=== PATIENT | female | born 1955 | race Caucasian/White ===

== ENCOUNTER 2018-08-27 12:19 | Observation (INO) | payer OTHER ==
[~2018-08-27] VITALS: Ht 160 cm; Wt 57.6 kg
[2018-08-27 14:06] LABS: EOSINOPHILS % (AUTO) 1.3 % (0.0-8.0); HEMATOCRIT 39.2 % (36-48); LYMPHOCYTES % (AUTO) 28.4 % (21.0-51.0); MEAN CORPUSCULAR HEMOGLOBIN 32.3 pg (27.0-33.0); MEAN CORPUSCULAR HGB CONC 34.2 g/dL (32.0-36.0); MEAN CORPUSCULAR VOLUME 94.5 fL (79-99); MONOCYTES % (AUTO) 8.8 % (3.0-13.0); NEUTROPHILS % (AUTO) 60.5 % (40.0-77.0); PLATELET COUNT (AUTO) 226 K/uL (130-400); RED BLOOD CELL COUNT(AUTO) 4.15 MIL/uL (4.00-5.50); RED CELL DISTRIBUTION WIDTH 13.2 % (11.0-15.5); WHITE BLOOD COUNT (AUTO) 4.6 K/uL (4.8-10.8)
[2018-08-27 14:17] LABS: CREATININE 0.6 mg/dL (0.5-1.5); POTASSIUM 3.9 mmol/L (3.5-5.1)
[2018-08-27 14:23] LABS: PARTIAL THROMBOPLASTIN TIME 24.7 SEC (26.3-35.5); PROTHROMBIN TIME 10.5 SEC (9.6-11.6)
[2018-08-27 14:24] LABS: ALBUMIN 4.2 g/dL (3.5-5.0); BILIRUBIN,TOTAL 0.5 mg/dL (0.2-1.0); TOTAL PROTEIN, SERUM 7.3 g/dL (6.0-8.3)
[2018-08-27] MEDS ORDERED: ACETAMINOPHEN-CODEINE 300/30MG TAB PO PRN (17:45)
[2018-08-27] MEDS ORDERED: APIXABAN 5 MG TABLET PO SCH (21:00)
[2018-08-27] MEDS: ENOXAPARIN SODIUM 60 MG/0.6 ML SQ SCH (21:00)
[2018-08-27] MEDS ORDERED: ENOXAPARIN SODIUM 100 MG/1 ML SQ ONE (21:02)
[2018-08-27 21:28] VITALS: BP 144/64
[2018-08-27] MEDS ORDERED: VERA80TA5 PO (21:42)
[2018-08-27] MEDS ORDERED: ASPI-1026 PO (21:42)
[2018-08-27 23:15] VITALS: BP 134/66
[2018-08-28] VITALS (7 sets, daily range): BP systolic 103–139; BP diastolic 50–69
[2018-08-28 03:50] LABS: HEMATOCRIT 37.3 % (36-48); MEAN CORPUSCULAR HEMOGLOBIN 31.8 pg (27.0-33.0); MEAN CORPUSCULAR HGB CONC 34.1 g/dL (32.0-36.0); MEAN CORPUSCULAR VOLUME 93.4 fL (79-99); PLATELET COUNT (AUTO) 194 K/uL (130-400); RED CELL DISTRIBUTION WIDTH 13.2 % (11.0-15.5); WHITE BLOOD COUNT (AUTO) 4.3 K/uL (4.8-10.8)
[2018-08-28 04:11] LABS: ALBUMIN 3.5 g/dL (3.5-5.0); BILIRUBIN,TOTAL 0.3 mg/dL (0.2-1.0); CREATININE 0.7 mg/dL (0.5-1.5); POTASSIUM 3.7 mmol/L (3.5-5.1); TOTAL PROTEIN, SERUM 6.4 g/dL (6.0-8.3)
[2018-08-28] MEDS ORDERED: ENOXAPARIN SODIUM 40 MG/0.4 ML SYRINGE SQ SCH (09:00)
[2018-08-28] MEDS: PANTOPRAZOLE SODIUM 40 MG TABLET.DR PO SCH (09:18)
[2018-08-28] MEDS: ENOXAPARIN SODIUM 60 MG/0.6 ML SQ SCH ×2 (09:19→21:47)
[2018-08-28] MEDS ORDERED: LACTULOSE 20 GM/30 ML UDCUP PO PRN (11:15)
[2018-08-28] MEDS ORDERED: ACETAMINOPHEN EXTRA STRENGTH 500 MG TABLET PO PRN (11:30)
[2018-08-28] MEDS ORDERED: ONDANSETRON HCL MDV 20ML 2 MG/ML VIAL IVP PRN (11:30)
[2018-08-29 04:07] VITALS: BP 106/54
[2018-08-29 04:15] LABS: BASOPHILS % (AUTO) 1.4 % (0.0-5.0); EOSINOPHILS % (AUTO) 2.5 % (0.0-8.0); HEMATOCRIT 36.9 % (36-48); LYMPHOCYTES % (AUTO) 43.2 % (21.0-51.0); MEAN CORPUSCULAR HEMOGLOBIN 32.5 pg (27.0-33.0); MEAN CORPUSCULAR HGB CONC 34.4 g/dL (32.0-36.0); MEAN CORPUSCULAR VOLUME 94.3 fL (79-99); MONOCYTES % (AUTO) 8.7 % (3.0-13.0); NEUTROPHILS % (AUTO) 44.2 % (40.0-77.0); PLATELET COUNT (AUTO) 197 K/uL (130-400); RED BLOOD CELL COUNT(AUTO) 3.92 MIL/uL (4.00-5.50); RED CELL DISTRIBUTION WIDTH 12.8 % (11.0-15.5)
[2018-08-29 04:28] LABS: CREATININE 0.6 mg/dL (0.5-1.5); POTASSIUM 3.8 mmol/L (3.5-5.1)
[2018-08-29 07:00] VITALS: BP 125/70
[2018-08-29] MEDS: PANTOPRAZOLE SODIUM 40 MG TABLET.DR PO SCH (09:09)
[2018-08-29] MEDS: ENOXAPARIN SODIUM 60 MG/0.6 ML SQ SCH (09:10)
[2018-08-29 11:00] VITALS: BP 126/74
[2018-08-29] MEDS ORDERED: DILT-36 PO (11:08)
[2018-08-29] MEDS ORDERED: APIX5TAB PO (12:45)
[2018-08-29] MEDS ORDERED: APIXABAN 5 MG TABLET PO SCH (17:00)
[2018-08-30] MEDS ORDERED: DILTIAZEM HCL 120 MG CAP.SR.24H PO SCH (09:00)
== END 2018-08-29 13:10 | disposition home or self-care (01) ==
LOC: EDH 12:19 → EDHIP 17:43 → 2DH 19:13
PROVIDERS: ADMIT Hospitalist; ATTEND Hospitalist
DX: I82.411 Acute embolism and thrombosis of right femoral vein (principal); R58 Hemorrhage, not elsewhere classified; R00.1 Bradycardia, unspecified; I10 Essential (primary) hypertension; I48.91 Unspecified atrial fibrillation; I48.3 Typical atrial flutter; K59.00 Constipation, unspecified; Z95.2 Presence of prosthetic heart valve; Z82.49 Family history of ischemic heart disease and other diseases of the circulatory system; Z83.3 Family history of diabetes mellitus; Z79.01 Long term (current) use of anticoagulants; Z79.82 Long term (current) use of aspirin
CPT/HCPCS: 36415 ×3; 76882; 80048; 80053 ×2; 85025 ×2; 85027; 85610; 85730; 93971; 96372 ×2; 99284; A4600; G0378 ×43; J1650 ×4

== ENCOUNTER → 2019-06-02 | Outpatient (CLI) | payer OTHER ==
[~2019-06-02] MED LIST: APIX5TAB PO; DILT-36 PO
== END | disposition home or self-care (01) ==
LOC: SHCH 13:06
PROVIDERS: ATTEND Internal Medicine Cardiovascular Disease
DX: I48.3 Typical atrial flutter (principal); E78.5 Hyperlipidemia, unspecified; I10 Essential (primary) hypertension
CPT/HCPCS: 93970